=== PATIENT | female | born 2000 | race Caucasian/White ===

== ENCOUNTER → 2021-01-18 | Day surgery (SDC) | payer OTHER | END | disposition home or self-care (01) | LOC: OR 08:00 | DX: K29.50 Unspecified chronic gastritis without bleeding (principal); K21.00 Gastro-esophageal reflux disease with esophagitis, without bleeding; E66.01 Morbid (severe) obesity due to excess calories; Z68.54 Body mass index [BMI] pediatric, 95th percentile for age to less than 120% of the 95th percentile for age | CPT/HCPCS: 84703; J2704; J7040 ==

== ENCOUNTER → 2021-01-24 | Outpatient (CLI) | payer OTHER | LOC: KOH-I 01-18 09:30 | DX: R10.84 Generalized abdominal pain (principal) | CPT/HCPCS: 74018; 76705 ==

== ENCOUNTER → 2021-04-17 | Outpatient (CLI) | payer OTHER | LOC: NM 03-20 09:00 | DX: R10.84 Generalized abdominal pain (principal) | CPT/HCPCS: 78226; A9537 ==